=== PATIENT | female | born 1980 | race Caucasian/White ===

== ENCOUNTER 2017-09-26 06:00 | Inpatient (IN) ==
[2017-09-27 13:16] VITALS: BMI 28.5
[2017-09-27] MEDS ORDERED: MAG-AL + SIM ORAL LIQUID 30ml PO PRN ×2 (13:16→19:56)
[2017-09-27] MEDS ORDERED: CALCIUM CARBONATE Chewable 500mg TABLET PO PRN ×2 (13:16→19:56)
[2017-09-27] MEDS ORDERED: CARBOPROST 250 MCG/ML INJECTION IM PRN (13:16)
[2017-09-27] MEDS ORDERED: D5LR 1,000 ML IV PRN (13:16)
[2017-09-27] MEDS ORDERED: ACETAMINOPHEN 500 MG TABLET PO PRN ×2 (13:16→19:56)
[2017-09-27] MEDS ORDERED: OXYTOCIN DRIP 30 UNIT/500 ML ML IV PRN (13:16)
[2017-09-27] MEDS ORDERED: METHYLERGONOVINE 0.2 MG/ML INJECTION IM PRN (13:16)
[2017-09-27] MEDS ORDERED: D5LR 1,000 ML IV SCH (13:30)
[2017-09-27] MEDS: LR 1,000 ML IV PRN ×2 (13:32→15:41)
--- NOTE | 2017-09-27 15:13 | Anesthesia Preoperative Report ---
Anesthesia Epidural/Spinal Rec - Date and Time Date: 09/27/17 Procedure: Labor Epidural Plan: Epidural - Vital Signs /Para: P:3 - Medictaions & Allergies Inpatient Medications: Current Medications Acetaminophen (Tylenol) 500 - 1,000 mg PO Q4H PRN PRN Reason: Pain Al Hydroxide/Mg Hydroxide (Maalox Plus) 30 ml PO Q3H PRN PRN Reason: Indigestion Calcium Carbonate (Tums) 500 - 1,000 mg PO Q2H PRN PRN Reason: Indigestion Carboprost Tromethamine (Hemabate) 250 mcg IM O PRN PRN Reason: .Downtime Dextrose/Lactated Ringer's (Dextrose 5%-Lactated Ringers) 1,000 mls @ 125 mls/ hr IV .Q8H PRN PRN Reason: Labor Lactated Ringer's (Lactated Ringers) 1,000 mls @ 999 mls/hr IV .Q1H1M PRN Last Infusion: 09/27/17 15:01 Dose: Infused Oxytocin (Pitocin Drip) 30 unit in 500 mls @ 2 mls/hr IV .Q24H PRN; Protocol PRN Reason: Induction/Augmentation Last Admin: 09/27/17 13:51 Dose: 2 mls/hr Dextrose/Lactated Ringer's (Dextrose 5%-Lactated Ringers) 1,000 mls @ 125 mls/ hr IV .Q8H JAYLIN Last Admin: 09/27/17 13:35 Dose: 125 mls/hr Methylergonovine Maleate (Methergine) 0.2 mg IM O PRN Misoprostol (Cytotec) 800 mcg MS ONCE PRN Allergies/Adverse Reactions: Allergies Allergy/AdvReac Type Severity Reaction Status Date / Time Penicillins Allergy Severe HIVES Verified 09/27/17 13:15 Sulfa (Sulfonamide Allergy Severe HIVES Verified 09/27/17 13:15 Antibiotics) - Home Medications Home Medications: Home Medications Medication Instructions Recorded Confirmed Type Pnv No.95/Ferrous Fum/Folic AC 1 each PO DAILY 09/18/17 09/18/17 History [ Tablet] - Medical History Respiratory: DENIES: Asthma, Sleep Apnea Cardiovascular: DENIES: Arrhythmia, Hypertension Gastrointestional: Reports: Gastroesophageal Reflux Disease (heartburn only) Neuro/Musculoskeletal: Denies: Depression Other History: Reports: Now DENIES: Anesthesia Reactions - Surgical History HEENT Surgeries: Reports: Tonsillectomy (1985) Reproductive Surgery/Treatment: DENIES: Section Anesthesia Reactions: None Hx Family Anesthesia Reaction: No History of Motion Sickness: No - Social History Smoking Status: Never smoker Substance Use Type: does not use - Pertinent Findings Lab Data: CBC and BMP 09/27/17 13:31 - Physical Exam Respiratory Exam: lungs clear, bilateral breath sounds equal Cardiovascular Exam: regular rate and rhythm - Airway Assessment Mallampati Score: II TMD: 3 Fingerbreadths Neck Extension: good Overall Assessment: may be difficult mask vent, may be difficult intubation - ASA ASA Score: 2 - Discussion Discussion: Discussed risks/options/alternatives of anesthesia and questions answered. Patient consents. Nursing pain assessment noted. Anesthesia Discussion: spouse Attestation Statement: Prior to the delivery of any anesthetic medication, I examined the patient, developed the plan, obtained the patient's consent and discussed the risk and benefits of the procedure with the patient/guardian.
[2017-09-27] MEDS ORDERED: ROPIVACAINE 1% 10MG/ML INJ 200 MG, SUFentanil 50 MCG in NS 100 ML EPI PRN (15:14)
[2017-09-27] MEDS ORDERED: DiphenhydrAMINE 50 MG/ML INJECTION IVP PRN (15:14)
[2017-09-27] MEDS ORDERED: NALOXONE 0.4 MG/ML INJECTION IVP PRN (15:14)
[2017-09-27] MEDS ORDERED: ONDANSETRON 4 MG/2 ML INJECTION IVP PRN (15:14)
[2017-09-27] MEDS ORDERED: OXYTOCIN DRIP 30 UNIT/500 ML ML IV SCH (19:56)
[2017-09-27] MEDS ORDERED: BENZOCAINE 20% SPRAY 0.5 ML MM ONE (19:56)
[2017-09-27] MEDS ORDERED: DiphenhydrAMINE 25 MG CAPSULE PO PRN (19:56)
[2017-09-27] MEDS ORDERED: HYDROCORTISONE 2.5% CREAM 30gm RECTALLY PRN (19:56)
[2017-09-27] MEDS: HYDROCODONE/APAP 5mg/325mg TABLET PO PRN (21:50)
[2017-09-27] MEDS: IBUPROFEN 800 MG TABLET PO PRN (21:50)
[2017-09-28] MEDS: HYDROCODONE/APAP 5mg/325mg TABLET PO PRN ×3 (03:18→22:16)
[2017-09-28] MEDS: LR 1,000 ML IV SCH ×3 (03:20→16:01)
[2017-09-28] MEDS: DOCUSATE CALCIUM 240 MG CAPSULE PO SCH (12:22)
--- NOTE | 2017-09-28 13:22 | Progress Note ---
OB PP Progress Note Free Text - Date Date: 09/28/17 - Progress Note Progress Note: doing ok vss af PPTL planned for this afternoon
--- NOTE | 2017-09-28 14:18 | Anesthesia Postoperative Note ---
- Date and Time Date: 09/28/17 Time: 12:30 - Status Patient Participated in Evaluation: Patient Participated in Person Vital Signs: Temperature 97.7 F 09/28/17 03:15 Pulse Rate 67 09/28/17 03:15 Respiratory Rate 16 09/28/17 03:15 Blood Pressure 124/69 09/28/17 03:15 Pulse Oximetry 99 09/27/17 15:17 Respiratory Function: Airway Patent Cardiovascular Function: Regular Pulse Mental Status: Alert and Oriented Pain Intensity: 2 Hydration: Taking PO Fluids (tolerating well, but NPO since 299) Complications During Recover: None Apparent Post Anesthesia Care Notes: full motor and sensation has returned - Follow-Up Instructions Instructions: Per Surgeon
--- NOTE | 2017-09-28 14:19 | Anesthesia Preoperative Report ---
Anesthesia Preoperative Record - Date and Time Date: 09/28/17 Preoperative Diagnosis: Proposed Procedure: post tubal NPO Since Date: 09/28/17 NPO Since Time: 03:00 Allergies/Adverse Reactions: Allergies Allergy/AdvReac Type Severity Reaction Status Date / Time Penicillins Allergy Severe HIVES Verified 09/27/17 13:15 Sulfa (Sulfonamide Allergy Severe HIVES Verified 09/27/17 13:15 Antibiotics) - Vital Signs Vital Signs: Temperature 97.7 F 09/28/17 03:15 Pulse Rate 67 09/28/17 03:15 Respiratory Rate 16 09/28/17 03:15 Blood Pressure 124/69 09/28/17 03:15 Pulse Oximetry 99 09/27/17 15:17 Height and Weight: Height 5 ft 3 in Weight 73.028 kg Body Mass Index 28.5 - Medications Inpatient Medications: Current Medications Acetaminophen (Tylenol) 500 - 1,000 mg PO Q4H PRN PRN Reason: Discomfort Hydrocodone Bitart/Acetaminophen ([place] 5/325) 1 - 2 tab PO Q4H PRN PRN Reason: Pain Last Admin: 09/28/17 03:18 Dose: 1 tab Al Hydroxide/Mg Hydroxide (Maalox Plus) 30 ml PO Q4H PRN PRN Reason: Indigestion Calcium Carbonate (Tums) 500 - 1,000 mg PO Q2H PRN PRN Reason: Dyspepsia Carboprost Tromethamine (Hemabate) 250 mcg IM O PRN PRN Reason: .Downtime Diphenhydramine HCl (Benadryl) 25 - 50 mg PO Q6H PRN PRN Reason: Itching Docusate Calcium (Surfak) 240 mg PO DAILY [facility] Last Admin: 09/28/17 12:22 Dose: Not Given Hydrocortisone (Anusol-Hc 2.5% Cream) 1 applic RECTALLY PRN PRN Lactated Ringer's (Lactated Ringers) 1,000 mls @ 125 mls/hr IV .Q8H JAYLIN Last Admin: 09/28/17 12:21 Dose: 125 mls/hr Ibuprofen (Motrin) 800 mg PO Q8H PRN PRN Reason: Pain Last Admin: 09/27/17 21:50 Dose: 800 mg Magnesium Hydroxide (Mom) 30 ml PO DAILY PRN PRN Reason: Constipation Methylergonovine Maleate (Methergine) 0.2 mg IM O PRN Phenylephrine HCl (Anusol Supp) 1 supp CA PRN PRN PRN Reason: Hemorrhoids Home Medications: Home Medications Medication Instructions Recorded Confirmed Type Pnv No.95/Ferrous Fum/Folic AC 1 each PO DAILY 09/18/17 09/18/17 History [ Tablet] - Medical History Respiratory: DENIES: Asthma, Sleep Apnea Cardiovascular: DENIES: Arrhythmia, Hypertension Gastrointestional: Reports: Gastroesophageal Reflux Disease (heartburn only) Neuro/Musculoskeletal: Denies: Depression Other History: Reports: Now DENIES: Anesthesia Reactions - Surgical History HEENT Surgeries: Reports: Tonsillectomy (1985) Reproductive Surgery/Treatment: DENIES: Section Anesthesia Reactions: None Hx Family Anesthesia Reaction: No History of Motion Sickness: No - Social History Smoking Status: Never smoker Hx Chewing Tobacco Use: No Second Hand Exposure: No Substance Use Type: does not use - Pertinent Findings Laboratory: CBC and BMP 09/28/17 07:05 - Physical Exam Respiratory Exam: Present: lungs clear, bilateral breath sounds equal Cardiovascular Exam: Present: regular rate and rhythm - Airway Assessment Mallampati Score: II TMD: 3 Fingerbreadths Neck Extension: good Overall Assessment: may be difficult mask vent, may be difficult intubation - ASA ASA Score: 2 - Plan Anesthesia: Neuroaxial Regional/Trunk Block: Spinal - Discussion Discussion: Discussed risks/options/alternatives of anesthesia and questions answered. Patient consents. Nursing pain assessment noted. Present for Discussion: spouse Attestation Statement: Prior to the delivery of any anesthetic medication, I examined the patient, developed the plan, obtained the patient's consent and discussed the risk and benefits of the procedure with the patient/guardian. - Additional Information Seen by Anesthesia: Yes
[2017-09-28] MEDS ORDERED: MIDAZOLAM 2mg/2ml INJECTION ONE (15:11)
[2017-09-28] MEDS ORDERED: FentaNYL 100 MCG/2 ML INJECTION ONE (15:13)
[2017-09-28] MEDS ORDERED: MORPHINE SULFATE PF 5mg/10ml INJ (Duramorph) ONE (15:34)
[2017-09-28] MEDS ORDERED: BUPIVACAINE 0.25% (2.5mg/ml) PF 30ml INJECTION ID ONE (16:22)
--- NOTE | 2017-09-28 17:14 | Anesthesia Postoperative Note ---
- Date and Time Date: 09/28/17 Time: 17:13 - Status Patient Participated in Evaluation: Patient Participated in Person Vital Signs: Temperature 97.1 F 09/28/17 16:55 Pulse Rate 70 09/28/17 17:00 Respiratory Rate 16 09/28/17 17:00 Blood Pressure 117/60 09/28/17 16:55 Pulse Oximetry 97 09/28/17 17:00 Respiratory Function: Airway Patent Cardiovascular Function: Regular Pulse EKG: Sinus Rhythm Mental Status: Alert and Oriented Pain Intensity: 0 Hydration: IV Infusing Complications During Recover: None Apparent Post Anesthesia Care Notes: block level at T10 and dropping. Pt very comfortable - Follow-Up Instructions Instructions: Per Surgeon
[2017-09-28] MEDS: IBUPROFEN 800 MG TABLET PO PRN (18:14)
[2017-09-28 21:31] VITALS: O2SAT 96
[2017-09-29] MEDS: HYDROCODONE/APAP 5mg/325mg TABLET PO PRN ×2 (02:58→08:42)
[2017-09-29] MEDS: IBUPROFEN 800 MG TABLET PO PRN (02:58)
[2017-09-29 08:11] VITALS: BP 120/67; PULSE 68; RESP 16; TEMP 98.3
--- NOTE | 2017-09-29 08:11 | Labor and Delivery Note ---
DATE OF DELIVERY: 09/27/2017 DIAGNOSES 1. 37-year-old white female G6, P4, LC3 at 39.3 weeks gestational age. 2. Advanced maternal age. 3. Pitocin induction of labor for history of macrosomia and logistics. 4. Epidural anesthesia. 5. Artificial rupture of membranes. 6. Direct monitor. 7. Spontaneous vaginal delivery. 8. Female infant, Apgars, 3945 grams (8 pounds 11 ounces) (Narda). BRIEF DESCRIPTION This is a patient of mine who was scheduled for an induction yesterday but because of how busy the unit was it had to be moved to today. We started at 1300 today and then the patient got an epidural block. She had a vagal reaction at the insertion of the Begum catheter with low blood pressures and deceleration so the Pitocin was stopped, IV fluid bolus was given and we waited until the baby became happy again before restarting the induction. I placed a direct monitor during that time so I could better track the baby. Pit reached a maximum of 10 milliunits a minute. She made it to complete dilation and then very shortly thereafter had a vaginal delivery. Infant was bulb suctioned after delivery of head and then again after delivery of the body. Cord was allowed to drain for a couple minutes then it was doubly clamped and the 's father cut the cord. Infant was initially placed on the mother's abdomen. Perineum was intact. Placenta delivered spontaneously. tubal ligation as planned for tomorrow. RON
--- NOTE | 2017-09-29 08:26 | OB/GYN Progress Note ---
OB-PP Progress Note - General PPD2 POD:: POD1 Maternal Group B Strep: Negative Maternal blood type: O+ Maternal Rubella Status: Immune - Subjective Date: 09/29/17 Lochia: Moderate Pain: controlled Nausea or Vomiting Present: No - Objective Vital Signs: Last Vital Signs Temp 98.3 F 09/29/17 05:30 Pulse 68 09/29/17 05:30 Resp 16 09/29/17 05:30 BP 120/67 09/29/17 05:30 Pulse Ox 96 09/28/17 21:25 Urine Output: good General: alert and oriented Respiratory: non-labored Abdomen: fundus firm Incision: Dressing in place. Incision not visualized. Extremities: non-tender Edema: Trace bilateral pedal edema - Assessment Assessment: SP, , Tubal Ligation - Plan Plan: routine care Expected date of discharge: 09/29/17
[2017-09-29] MEDS: DOCUSATE CALCIUM 240 MG CAPSULE PO SCH (08:42)
[2017-09-29] MEDS: LR 1,000 ML IV SCH (09:09)
--- NOTE | 2017-09-29 09:17 | Operative Note ---
DATE: 09/28/2017 PREOPERATIVE DIAGNOSIS: day #1 desires permanent sterilization. POSTOPERATIVE DIAGNOSIS: Same PROCEDURE: Modified [place] tubal ligation. ANESTHESIA: Spinal by Hitesh Butler CRNA. SURGEON: Mehul Blevins MD COMPLICATIONS: None. DESCRIPTION OF OPERATION Prior to starting the procedure the patient again vocalized her desire for permanent sterilization. The risks, complications and alternatives to this procedure were again reviewed and questions were answered to the Patient's satisfaction. A chance of failure is present (estimated at 1%) coupled with an increased risk of ectopics if failure occurs. The patient is aware of this and still desires to proceed. After adequate spinal anesthesia, the patient was prepped and draped in the supine position. The bladder was emptied prior to beginning the procedure. Then 0.25% Marcaine was injected in the inferior aspect of the umbilical region for additional anesthesia. Then a semilunar subumbilical incision was made with a scalpel. This was carried down to the fascia. The fascia was identified and incised transversely with the Akbar scissors. Peritoneum was then identified and grasped with a Tracy clamp and entered with a Metzenbaum scissors. Army-Sapulpa retractors were used. The patient was then placed in slight Trendelenburg position and rolled to the left side. The right fallopian tube was then identified and grasped with a Guido clamp and followed in a serial fashion to its fimbriated end to confirm tube identification. Then in a stairstep fashion it was followed back to the mid isthmic portion of the tube. The mid isthmic portion of the tube was elevated through the incision forming a knuckle of the tube and this knuckle was initially ligated using 2-0 chromic. Then a Tracy clamp was passed through the meso of the tube and the proximal and distal aspects of the knuckle of the tube were ligated using 2-0 silk sutures. The knuckle of the tube was then transected and removed and sent to surgical pathology for lumen confirmation. Hemostasis was confirmed. Then 0.25% Marcaine was injected in the ligated end of the knuckle of the tube for additional anesthesia. The tube was then allowed to return to the abdominal wall after the fimbriated end was again visualized to confirm identification. Once the tube was replaced into the abdominal cavity the patient was rolled to the other side and the procedure was repeated in an identical fashion on the left side. Care was taken to identify the fallopian tube prior to and after performing the procedure by visualization of the fimbriated end. Once this was completed on both sides and hemostasis was confirmed on both sides, the abdomen was then closed in layers. This was done first by closing the peritoneum in a pursestring fashion using 2-0 Vicryl. Then using 2-0 Vicryl in a running nonlocking fashion, fascia was closed. The skin was closed in a subcuticular fashion using 4-0 undyed Vicryl. Additional Marcaine was injected around the incision site. The patient tolerated the procedure well and went to the recovery room in stable condition. Pad, sponge and needle counts were correct. RON
== END 2017-09-29 11:30 | disposition home or self-care (01) | DRG 767 ==
LOC: MC 09-27 12:57
PROVIDERS: ADMIT Obstetrics & Gynecology; ATTEND Obstetrics & Gynecology